=== PATIENT | female | born 2000 | race Hispanic/Latino ===

== ENCOUNTER 2021-02-10 17:12 | Emergency (ER) | payer OTHER, SELFPAY ==
[2021-02-10] MEDS ORDERED: ACETAMINOPHEN 500 MG TAB ONE (18:25)
[2021-02-10 19:59] LABS: SARS-COV-2 RT PCR POSITIVE (NEGATIVE)
--- NOTE | 2021-02-10 21:02 | ER ---
Nurse's Notes [facility] Name: Kesha Alvarado Age: 20 yrs Sex: Female : 2000 Arrival Date: 02/10/2021 Time: 17:17 Bed External Waiting Private MD: Diagnosis: Coronavirus infection, unspecified Presentation: 02/10 18:21 Chief complaint: Patient states: I took a nap today because my head started hurting. I ld1 woke up with a headache, ear pain, chills and fever. Coronavirus screen: Client presents with at least one sign or symptom that may indicate coronavirus-19. Standard/surgical mask placed on the client. Ebola Screen: No symptoms or risks identified at this time. Initial Sepsis Screen: Does the patient meet any 2 criteria? No. Patient's initial sepsis screen is negative. Does the patient have a suspected source of infection? No. Patient's initial sepsis screen is negative. Risk Assessment: Do you want to hurt yourself or someone else?. Onset of symptoms was February 10, 2021. 18:21 Method Of Arrival: Ambulatory ld1 18:21 Acuity: JUANJO 4 ld1 Triage Assessment: 18:22 General: Appears in no apparent distress. comfortable, Behavior is calm, cooperative, ld1 appropriate for age. Pain: Denies pain. EENT: Reports pain in right ear and left ear. Neuro: Level of Consciousness is awake, alert, obeys commands, Oriented to person, place, time, situation. Respiratory: Airway is patent Respiratory effort is even, unlabored, Respiratory pattern is regular, symmetrical. 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 - Social history:: Smoking status: . Screenin:06 Abuse screen: Denies threats or abuse. Denies injuries from another. Nutritional ld1 screening: No deficits noted. Tuberculosis screening: No symptoms or risk factors identified. Fall Risk None identified. Assessment: 21:06 Reassessment: See triage assessment. ld1 Vital Signs: 18:21 BP 138 / 103; Pulse 92; Resp 18; Temp 103.1(O); Pulse Ox 100% on R/A; Weight 90.72 kg; ld1 Height 5 ft. 6 in. (167.64 cm); Pain 0/10; 21:06 BP 129 / 99; Pulse 86; Resp 18; Temp 101(O); Pulse Ox 100% on R/A; ld1 18:21 Body Mass Index 32.28 (90.72 kg, 167.64 cm) ld1 ED Course: 17:17 Patient arrived in ED. mr 18:22 Triage completed. ld1 18:22 Arm band placed on right wrist. ld1 18:23 Kali Davies NP is PHCP. pm1 18:23 Layo Perea MD is Attending Physician. pm1 18:25 COVID-19/FLU A+B (Document "Date of Onset" if Symptomatic) Sent. ld1 18:25 Strep Sent. ld1 21:06 Patient has correct armband on for positive identification. ld1 21: No provider procedures requiring assistance completed. Patient did not have IV access ld1 during this emergency room visit. Administered Medications: 18:24 Drug: Tylenol 1000 mg Route: PO; ld1 18:25 Follow up: Response: No adverse reaction ld1 18:25 CANCELLED (Duplicate Order): Tylenol 1000 mg PO once pm1 Outcome: 21:01 Discharge ordered by . pm1 21:06 Discharged to home ambulatory. ld1 21:06 Condition: stable 21:06 Discharge instructions given to patient, Instructed on discharge instructions, follow up and referral plans. Demonstrated understanding of instructions, follow-up care. 21:07 Patient left the ED. ld1 Signatures: Damari Matos Kali Davies, APARTMENT MAINTENANCE WORKER APARTMENT MAINTENANCE WORKER pm1 Radha Humphreys, RN RN ld1
--- NOTE | 2021-02-10 21:02 | EDPHYS ---
Physician Documentation [facility] Name: Kesha Alvarado Age: 20 yrs Sex: Female : 2000 Arrival Date: 02/10/2021 Time: 17:17 Bed External Waiting Private MD: ED Physician Layo Perea HPI: 02/10 18:45 This 20 yrs old Female presents to ER via Ambulatory with complaints of Ear pm1 Pain, Fever. 18:45 The patient presents with pain, that is acute. The complaints affect the right ear. pm1 Onset: The symptoms/episode began/occurred today. Modifying factors: The symptoms are alleviated by nothing, the symptoms are aggravated by nothing. Associated signs and symptoms: Pertinent positives: body aches, fever, sore throat. Severity of symptoms: in the emergency department the symptoms are worse. The patient has experienced a previous episode, diagnosed with covid 1.5 weeks ago and all her symptoms resolved. The patient has not recently seen a physician. 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 - Social history:: Smoking status: . ROS: 18:45 Cardiovascular: Negative for chest pain, palpitations, and edema, Respiratory: Negative pm1 for shortness of breath, cough, wheezing, and pleuritic chest pain, Abdomen/GI: Negative for abdominal pain, nausea, vomiting, diarrhea, and constipation, Back: Negative for injury and pain, MS/Extremity: Negative for injury and deformity, Skin: Negative for injury, rash, and discoloration. 18:45 Constitutional: Positive for body aches, chills, fever, Negative for poor PO intake. 18:45 ENT: Positive for ear pain, sore throat. 18:45 Neuro: Positive for headache, Negative for numbness, tingling, weakness. 18:45 All other systems are negative. Exam: 18:45 Constitutional: This is a well developed, well nourished patient who is awake, alert, pm1 and in no acute distress. Head/Face: Normocephalic, atraumatic. 18:45 Skin: Warm, dry with normal turgor. Normal color with no rashes, no lesions, and no evidence of cellulitis. MS/ Extremity: Pulses equal, no cyanosis. Neurovascular intact. Full, normal range of motion. 18:45 Eyes: Exam is negative for acute changes, Extraocular movements: no acute changes. 18:45 ENT: External ear(s): no acute changes, Ear canal(s): no acute changes, TM's: no acute changes, bulging, is not appreciated, bilaterally, erythema, is not appreciated, bilaterally, Mouth: no acute changes, Lips: normal, moist, Oral mucosa: normal, pink and intact, moist, Posterior pharynx: Tonsils: bilaterally enlarged, with erythema, no exudate, no ulcerations, erythema, that is moderate, peritonsillar mass, is not appreciated. 18:45 Cardiovascular: Exam negative for acute changes, Rate: normal, Rhythm: regular, Pulses: no pulse deficits are appreciated. 18:45 Respiratory: Exam negative for acute changes, respiratory distress, shortness of breath, Breath sounds: are clear throughout. 18:45 Neuro: Exam negative for acute changes, Orientation: is normal, Mentation: is normal, Motor: is normal, moves all fours. Vital Signs: 18:21 BP 138 / 103; Pulse 92; Resp 18; Temp 103.1(O); Pulse Ox 100% on R/A; Weight 90.72 kg; ld1 Height 5 ft. 6 in. (167.64 cm); Pain 0/10; 21:06 BP 129 / 99; Pulse 86; Resp 18; Temp 101(O); Pulse Ox 100% on R/A; ld1 18:21 Body Mass Index 32.28 (90.72 kg, 167.64 cm) ld1 MDM: 18:26 Patient medically screened. pm1 21:01 Data reviewed: vital signs. Data interpreted: Pulse oximetry: on room air is 100 %. pm1 Interpretation: normal. Counseling: I had a detailed discussion with the patient and/or guardian regarding: the historical points, exam findings, and any diagnostic results supporting the discharge/admit diagnosis, lab results, the need for outpatient follow up, to return to the emergency department if symptoms worsen or persist or if there are any questions or concerns that arise at home. 02/10 18:24 Order name: COVID-19/FLU A+B (Document "Date of Onset" if Symptomatic); Complete Time: ld1 20:56 02/10 18:24 Order name: Strep; Complete Time: 18:53 ld1 02/10 18:45 Order name: Throat Culture EDMS Administered Medications: 18:24 Drug: Tylenol 1000 mg Route: PO; ld1 18:25 Follow up: Response: No adverse reaction ld1 18:25 CANCELLED (Duplicate Order): Tylenol 1000 mg PO once pm1 Disposition Summary: 02/10/21 21:01 Discharge Ordered Location: Home pm1 Problem: new pm1 Symptoms: have improved pm1 Condition: Stable pm1 Diagnosis - Coronavirus infection, unspecified pm1 Followup: pm1 - With: Emergency Department - When: As needed - Reason: Worsening of condition Followup: pm1 - With: Private Physician - When: 2 - 3 days - Reason: Recheck today's complaints, Continuance of care, Re-evaluation by your physician Discharge Instructions: - Discharge Summary Sheet pm1 - COVID-19 pm1 - COVID-19 Frequently Asked Questions pm1 - 10 Things You Can Do to Manage Your COVID-19 Symptoms at Home - [facility] pm1 - COVID-19: Quarantine vs. Isolation - [facility] pm1 Forms: - Work release form pm1 - Medication Reconciliation Form pm1 - Thank You Letter pm1 - Antibiotic Education pm1 - Prescription Opioid Use pm1 Addendum: 02/15/2021 07:03 Co-signature as Attending Physician, Layo Perea MD. r n Signatures: Dispatcher [employer] EDMS Layo Perea MD MD rn Marinas, Patrick, NP [employer] pm1 Radha Humphreys RN RN ld1 Corrections: (The following items were deleted from the chart) 02/10 18:25 18:25 Tylenol 1000 mg PO once ordered. pm1 pm1 18:26 18:25 COVID-19/FLU A+B+MOL.LAB.BRZ ordered. EDMS EDMS
[2021-02-10 21:18] VITALS: O2SAT 100
[2021-02-10 21:20] VITALS: BP 129/99; TEMP 101
== END 2021-02-10 21:07 | disposition home or self-care (01) ==
LOC: ER 17:12
DX: U07.1 COVID-19 (principal)
CPT/HCPCS: 0240U; 87070; 87081; 99283